=== PATIENT | female | born 1985 | race Caucasian/White ===

== ENCOUNTER 2016-07-09 11:07 | Emergency (ER) | payer MEDICAID, OTHER ==
[~2016-07-09] VITALS: Ht 172.7 cm; Wt 77.1 kg
--- OUTSIDE RECORDS SUMMARY | 2016-07-09 11:15 | XMS REPORT ---
Author Fay Nava [facility] Address [address] [place], [place] [id number] Care Team Providers Care Correction Officer Head Name Role Phone Tom Kaiser PCP Unavailable Allergies and Adverse Reactions Name Reaction Notes No known drug allergy Plan of Treatment Planned Activity Comments Planned Date Planned Time Plan/Goal HIV-1ANTIBODY 07/23/2015 12:00 AM URINALYSIS AUTO W/SCOPE 07/23/2015 12:00 AM OBSTETRIC PANEL 07/23/2015 12:00 AM URINE TEST 07/22/2015 12:00 AM CHORIONIC GONADOTROPIN TEST 07/28/2015 12:00 AM vaginal spotting Medications Not available. Problem List Not available. Vital Signs Date Time BP-Sys(mm[Hg] BP-Aruna(mm[Hg]) HR(bpm) RR(rpm) Temp WT HT HC BMI BSA BMI Percentile O2 Sat(%) 07/23/2015 8:51:00 AM 123 mmHg 66 mmHg 85 bpm 98.8 F 177 lbs 68 in 26.91 kg/m2 1.96 m2 07/22/2015 4:01:00 PM 122 mmHg 68 mmHg 81 bpm 20 rpm 98.8 F 176 lbs 99 % Social History Name Description Comments Single bachelors degree Caffeine Light Alcohol Never Tobacco Current every day smoker History of Procedures Date Ordered Description Order Status 07/23/2015 9:00 AM URINE TEST Reviewed 07/23/2015 12:00 AM CYTOPATH C/V THIN LAYER Returned 07/23/2015 12:00 AM N.GONORRHOEAE DNA AMP PROB Returned 07/23/2015 12:00 AM CHLAMYDIA CULTURE Returned 07/25/2015 12:00 AM CHORIONIC GONADOTROPIN TEST Returned 07/23/2015 12:00 AM Type and screen Returned Results Summary Data and Description Results 07/23/2015 9:00 AM Test, Urine positive 07/23/2015 10:05 AM BETA HCG QUANT 15248.0 mIU/mL 07/25/2015 6:00 PM BETA HCG QUANT >57706 mIU/mLBETA HCG QUANT 22560.0 mIU/ mLBETA HCG QUANT 03245.0 mIU/mL History Of Immunizations Not available. History of Past Illness Name Date of Onset Comments No significant medical history Vaginal spotting Jul 22 2015 4:06PM test confirmed positive Jul 23 2015 9:00AM , Threatened Jul 23 2015 9:00AM , Threatened Jul 28 2015 9:13AM Payers Not available. History of Encounters Visit Date Visit Type Provider 07/23/2015 Office visit Fay Kaiser APRN 07/22/2015 Office visit Trudy Cunningham BENZENE STILL UTILITY OPERATOR
[2016-07-09] MEDS ORDERED: NS IV 1000 ML 1,000 ML IV SCH (11:45)
[2016-07-09 11:59] LABS: BASOPHILS % (AUTO) 1 % (0-10); EOSINOPHILS # (AUTO) 0.1 10^3/uL (0.0-0.3); EOSINOPHILS % (AUTO) 2 % (0-10); LYMPHOCYTES # (AUTO) 1.2 X 10^3 (1.0-4.0); LYMPHOCYTES % (AUTO) 21 % (12-44); MEAN CORPUSCULAR HEMOGLOBIN 30 PG (25-34); MEAN CORPUSCULAR HGB CONC 34 G/DL (32-36); MEAN CORPUSCULAR VOLUME 88 FL (80-99); MONOCYTES # (AUTO) 0.5 X 10^3 (0.0-1.0); MONOCYTES % (AUTO) 9 % (0-12); NEUTROPHILS % (AUTO) 68 % (42-75); PLATELET COUNT 245 10^3/uL (130-400); RED BLOOD COUNT 4.39 10^6/uL (4.35-5.85); WHITE BLOOD COUNT 5.8 10^3/uL (4.3-11.0)
[2016-07-09] MEDS ORDERED: KETOROLAC 30 MG/ML VIAL IVP ONE (12:15)
--- NOTE | 2016-07-09 12:15 | ED Cough/URI ---
General Chief Complaint: Cough/Cold/Flu Symptoms Stated Complaint: FEVER/LETHARGIC/DUNN Nursing Triage Note: Pt presents to ED with c/o fever, productive cough, body aches, nausea, and lethargy x 4 days, no f/u with PCP. Afebrile in triage. Last dose of Motrin at 0930. Source: patient Exam Limitations: no limitations History of Present Illness Time seen by provider: 12:13 Initial Comments To ER with general malaise, frontal headache, productive cough, body aches fever and lethargy. This is been going on for 4 days. Several family members with influenza recently. Timing/Duration: just prior to arrival Severity/Quality: moderate Associated Symptoms: cough Allergies and Home Medications Allergies Coded Allergies: No Known Drug Allergies (Unverified , 07/09/16) Constitutional: see HPI malaise weakness EENTM: see HPI Respiratory: see HPI cough Cardiovascular: no symptoms reported Genitourinary: no symptoms reported Musculoskeletal: no symptoms reported Skin: no symptoms reported Psychiatric/Neurological: No Symptoms Reported Hematologic/Lymphatic: No Symptoms Reported Immunological/Allergic: no symptoms reported Past Hgsicgs-Xxrxzl-Gkhnou Hx Patient Social History Alcohol Use: Denies Use Recreational Drug Use: No Smoking Status: Current Everyday Smoker Type Used: Cigarettes Recent Foreign Travel: No Contact w/Someone Who Travel: No Recent Infectious Disease Expo: No Recent Hopitalizations: No Physical Abuse Screen: No Sexual Abuse: No Seasonal Allergies Seasonal Allergies: No Surgeries HX Surgeries: Yes (C/S x 4.) Surgeries: Section, Tonsillectomy Respiratory Hx Respiratory Disorders: No Cardiovascular Hx Cardiac Disorders: No Neurological Hx Neurological Disorders: No Reproductive System Hx Reproductive Disorders: No Sexually Transmitted Disease: No HIV/AIDS: No Genitourinary Hx Genitourinary Disorders: No Gastrointestinal Hx Gastrointestinal Disorders: No Musculoskeletal Hx Musculoskeletal Disorders: No Endocrine Hx Endocrine Disorders: No HEENT HX ENT Disorders: No Cancer Hx Cancer: No Psychosocial Hx Psychiatric Problems: No Integumentary HX Skin/Integumentary Disorder: No Blood Transfusions Hx Blood Disorders: No Adverse Reaction to a Blood Tr: No Physical Exam Vital Signs Vital Sign - Last 12Hours 07/09/16 11:17 Temp 98.7 Pulse 102 Resp 20 B/P 94/57 Pulse Ox 96 O2 Delivery Room Air Capillary Refill : Less Than 3 Seconds General Appearance: WD/WN no apparent distress Eyes: Bilateral Eye EOMI, Bilateral Eye Normal Inspection, Bilateral Eye PERRL HEENT: PERRL/EOMI normal ENT inspection Neck: non-tender full range of motion Respiratory: normal breath sounds no respiratory distress no accessory muscle use Cardiovascular: regular rate, rhythm no murmur Gastrointestinal: non tender soft Extremities: normal range of motion non-tender Neurologic/Psychiatric: alert normal mood/affect oriented x 3 Skin: normal color warm/dry Progress/Results/Core Measures Results/Orders Lab Results Laboratory Tests Test 07/09/16 11:50 Range/Units Basophils # (Auto) 0.0 0.0-0.1 10^3/uL Basophils (%) (Auto) 1 0-10 % Eosinophils # (Auto) 0.1 0.0-0.3 10^3/uL Eosinophils (%) (Auto) 2 0-10 % Hematocrit 39 35-52 % Hemoglobin 13.0 11.5-16.0 G/DL Lymphocytes # (Auto) 1.2 1.0-4.0 X 10^3 Lymphocytes (%) (Auto) 21 12-44 % Mean Corpuscular Hemoglobin 30 25-34 PG Mean Corpuscular Hemoglobin Concent 34 32-36 G/DL Mean Corpuscular Volume 88 80-99 FL Mean Platelet Volume 11.0 H 7.4-10.4 FL Monocytes # (Auto) 0.5 0.0-1.0 X 10^3 Monocytes (%) (Auto) 9 0-12 % Neutrophils # (Auto) 4.0 1.8-7.8 X 10^3 Neutrophils (%) (Auto) 68 42-75 % Platelet Count 245 130-400 10^3/uL Red Blood Count 4.39 4.35-5.85 10^6/uL Red Cell Distribution Width 13.0 10.0-14.5 % White Blood Count 5.8 4.3-11.0 10^3/uL Micro Results Microbiology 07/09/16 Influenza Types A,B Antigen (ROSARIO) - Final, Complete My Orders Orders-JAHAIRA LLOYD APRN Influenza A And B Antigens (07/09/16 11:29) Saline Lock/Iv-Start (07/09/16 11:36) Cbc With Automated Diff (07/09/16 11:36) Ns Iv 1000 Ml (Sodium Chloride 0.9%) (07/09/16 11:45) Ketorolac Injection (Toradol Injection) (07/09/16 12:15) Acetaminophen Tablet (Tylenol Tablet) (07/09/16 13:15) Medications Given in ED Current Medications Medications Dose Ordered Sig/[place] Route Start Time Stop Time Status Last Admin Dose Admin Ketorolac Tromethamine 30 mg ONCE ONCE IVP 07/09/16 12:15 07/09/16 12:16 DC 07/09/16 12:23 30 MG Vital Signs/I&O Vital Sign - Last 12Hours 07/09/16 11:17 Temp 98.7 Pulse 102 Resp 20 B/P 94/57 Pulse Ox 96 O2 Delivery Room Air Blood Pressure Mean: 69 Departure Communication Progress Notes Patient states that her symptoms may have been more recent in onset than 4 days. States that she's been so focused on her children that she is not focused on herself. She believes that she may be within the 48 hour window and would like to try Tamiflu. I have handwritten a prescription for this. Impression Impression: Primary Impression: Influenza Disposition: 01 HOME, SELF-CARE Condition: Stable Departure-Patient Inst. Decision time for Depature: 12:14 Referrals: NO,LOCAL PHYSICIAN (PCP) Primary Care Physician Patient Instructions: Flu, Adult (DC) Add. Discharge Instructions: 1. Tylenol and Motrin for headache 2. Return to ER for any concerns All discharge instructions reviewed with patient and/or family. Voiced understanding. JAHAIRA LLOYD APRN Jul 09, 2016 12:15
[2016-07-09 13:15] VITALS: BP 102/70
[2016-07-09] MEDS ORDERED: ACETAMINOPHEN 500 MG TAB (TYLENOL) PO ONE (13:15)
== END 2016-07-09 13:18 | disposition home or self-care (01) ==
LOC: ER 11:10
DX: J09.X2 Influenza due to identified novel influenza A virus with other respiratory manifestations (principal)
CPT/HCPCS: 36415; 85025; 87804; 96361; 96374; 99283

== ENCOUNTER → 2017-04-23 | Outpatient (CLI) | payer MEDICAID ==
--- NOTE | 2017-04-23 16:41 | Diagnostic Imaging Report ---
INDICATION: survey. TECHNIQUE: Multiple real-time grayscale images were obtained over the gravid uterus. COMPARISON: None FINDINGS: heart rate is 136 beats per minute. The placenta is anterior. No placenta previa. The cervix is 5.1 cm in length and appears closed. The spine, posterior fossa, the lateral ventricles, the stomach, the bladder, two umbilical arteries, and the kidneys appear unremarkable. The four-chamber view and cord insertion are not well seen due to position. Biometrical measurements are as follows: Biparietal 6.26 cm, age 25 weeks 3 days. Head circumference 23.16 cm, age 25 weeks 2 days. Abdominal circumference 21.52 cm, age 26 weeks 1 days. Femur length 4.63 cm, age 25 weeks 3 days. Sonographic estimate age: 25 weeks 4 days. Sonographic estimated date of delivery: 08/02/2017. Estimated Weight: 838 gm (+/- 122 gm). LMP percentile: 77%. heart rate: 136 beats per minute. number: 1 of 1. IMPRESSION: The cord insertion and four-chamber view are not seen due to position. Followup to reassess in two weeks is suggested. Dictated by: Dictated on workstation # [id number]
== END ==
LOC: RAD 13:05
PROVIDERS: ATTEND Obstetrics & Gynecology
DX: Z36.87 Encounter for antenatal screening for uncertain dates (principal); Z3A.25 25 weeks gestation of pregnancy
CPT/HCPCS: 76805

== ENCOUNTER → 2017-07-25 | Outpatient (CLI) | payer MEDICAID ==
--- NOTE | 2017-07-25 12:42 | Diagnostic Imaging Report ---
INDICATION: Evaluate growth, amniotic fluid volume and presentation. TECHNIQUE: Multiple real-time grayscale images were obtained over the gravid uterus. COMPARISON: 04/23/2017. FINDINGS: There is a single live fetus in a transverse presentation, head to the maternal right. The amniotic fluid index is 15.6 cm. The placenta is anterior. heart rate was recorded at 149 beats per minute. Biometry measurements are consistent with approximately 37-38 weeks gestational age, demonstrating normal interval growth. Biometrical measurements are as follows: Biparietal 9.0 cm, age 36 weeks 5 days. Head circumference 32.6 cm, age 37 weeks 1 days. Abdominal circumference 34.0 cm, age 38 weeks 0 days. Femur length 7.6 cm, age 38 weeks 5 days. Sonographic estimate age: 37 weeks 5 days. Sonographic estimated date of delivery: 08/10/17. Estimated Weight: 3317 gm (+/- 484 gm). LMP percentile: 55%. heart rate: 149 beats per minute. number: 1 of 1. IMPRESSION: Single live IUP approximately 37-38 weeks gestational age showing normal interval growth when compared with prior ultrasound from April 2017. The fetus is transverse, head to maternal right. Dictated by: Dictated on workstation # [id number]
== END ==
LOC: RAD 12:09
PROVIDERS: ATTEND Obstetrics & Gynecology
DX: O32.2XX0 Maternal care for transverse and oblique lie, not applicable or unspecified (principal); Z3A.37 37 weeks gestation of pregnancy
CPT/HCPCS: 76816

== ENCOUNTER 2017-07-30 06:05 | Outpatient (CLI) | payer MEDICAID ==
[~2017-07-30] VITALS: Ht 172.7 cm; Wt 98.4 kg
== END 2017-07-30 14:59 ==
LOC: PREOP 06:05
PROVIDERS: ATTEND Obstetrics & Gynecology
DX: Z01.818 Encounter for other preprocedural examination (principal); O34.219 Maternal care for unspecified type scar from previous cesarean delivery; Z40.03 Encounter for prophylactic removal of fallopian tube(s)

== ENCOUNTER 2017-07-31 03:45 | Inpatient (IN) | payer MEDICAID ==
[~2017-07-31] VITALS: Ht 172.7 cm; Wt 96.2 kg
[2017-07-31] MEDS ORDERED: LACTATED RINGERS 1,000 ML IV ONE (05:39)
[2017-07-31] MEDS ORDERED: LACTATED RINGERS 1,000 ML IV PRN ×2 (07:41)
[2017-07-31] MEDS ORDERED: METOCLOPRAMIDE INJ 10 MG/2 ML (REGLAN) IV ONE (07:45)
[2017-07-31] MEDS ORDERED: ceFAZolin INJECTION 1,000 MG in NS (IVPB) 50 ML IV ONE (07:45)
[2017-07-31] MEDS ORDERED: FAMOTIDINE 20MG/2ML IV (PEPCID) IV ONE (07:45)
[2017-07-31] MEDS ORDERED: metroNIDAZOLE 500MG/100ML IVPB 100 ML IV ONE ×2 (07:45→10:30)
[2017-07-31] MEDS ORDERED: CITRIC ACID/SOB CIT (BICITRA) 30 ML UDC PO ONE (07:45)
[2017-07-31 07:48] LABS: BASOPHILS % (AUTO) 0 % (0-10); EOSINOPHILS # (AUTO) 0.1 10^3/uL (0.0-0.3); EOSINOPHILS % (AUTO) 1 % (0-10); HEMATOCRIT 31 % (35-52); HEMOGLOBIN 10.4 G/DL (11.5-16.0); LYMPHOCYTES # (AUTO) 2.1 X 10^3 (1.0-4.0); LYMPHOCYTES % (AUTO) 26 % (12-44); MEAN CORPUSCULAR HEMOGLOBIN 29 PG (25-34); MEAN CORPUSCULAR HGB CONC 33 G/DL (32-36); MEAN CORPUSCULAR VOLUME 87 FL (80-99); MEAN PLATELET VOLUME 11.5 FL (7.4-10.4); MONOCYTES # (AUTO) 0.5 X 10^3 (0.0-1.0); MONOCYTES % (AUTO) 6 % (0-12); NEUTROPHILS # (AUTO) 5.5 X 10^3 (1.8-7.8); NEUTROPHILS % (AUTO) 67 % (42-75); PLATELET COUNT 254 10^3/uL (130-400); RED BLOOD COUNT 3.57 10^6/uL (4.35-5.85); RED CELL DISTRIBUTION WIDTH 13.5 % (10.0-14.5); WHITE BLOOD COUNT 8.2 10^3/uL (4.3-11.0)
[2017-07-31 08:43] LABS: BILIRUBIN,URINE NEGATIVE (NEGATIVE); CLARITY,URINE CLEAR; COLOR,URINE YELLOW; GLUCOSE, URINE (UA) NEGATIVE (NEGATIVE); KETONES,URINE NEGATIVE (NEGATIVE); LEUKOCYTE ESTERASE ,URINE 1+ (NEGATIVE); NITRITE,URINE NEGATIVE (NEGATIVE); PH,URINE 7 (5-9); PROTEIN,URINE NEGATIVE (NEGATIVE); UROBILINOGEN,URINE NORMAL (NORMAL)
[2017-07-31 08:52] LABS: AMORPHOUS SEDIMENT,UR FEW AMOR URATES /LPF; BACTERIA,URINE FEW /HPF
[2017-07-31] MEDS ORDERED: metroNIDAZOLE 500MG/100ML IVPB 100 ML ONE (09:15)
[2017-07-31] MEDS ORDERED: ceFAZolin 2 GM IV Premixed 50 ML ONE (09:20)
[2017-07-31] MEDS ORDERED: AMPICILLIN 2000 MG INJECTION (IM/IV) ONE (09:20)
[2017-07-31] MEDS ORDERED: fentaNYL INJECTION 100 MCG/2 ML AMP ONE (09:20)
[2017-07-31] MEDS ORDERED: ONDANSETRON 4 MG/2 ML (SDV) Z0FRAN ONE ×2 (09:21→09:50)
[2017-07-31] MEDS ORDERED: INFLUENZA TRIvalent 2017-2018 0.5 ML/45 MCG SYR IM ONE (09:30)
--- NOTE | 2017-07-31 09:46 | Progress Note-Pre Operative ---
Pre-Operative Progress Note H&P Reviewed The H&P was reviewed, patient examined and no changes noted. Date Seen by Provider: Jul 31, 2017 Time Seen by Provider: 08:55 Date H&P Reviewed: Jul 31, 2017 Time H&P Reviewed: 07:00 Pre-Operative Diagnosis: Previous x 4, desire to reduce risk of ovarian cancer OSMIN MANN DO Jul 31, 2017 09:46
[2017-07-31] MEDS ORDERED: ONDANSETRON 4 MG/2 ML (SDV) Z0FRAN IV PRN (10:30)
[2017-07-31] MEDS ORDERED: ceFAZolin 2 GM IV Premixed 50 ML IV ONE (10:30)
[2017-07-31] MEDS ORDERED: diphenhydrAMINE 50 MG/ML INJ (BENADRYL) IV PRN (10:30)
[2017-07-31] MEDS ORDERED: NALOXONE 0.4 MG/ML 1 ML (NARCAN) VIAL IV PRN (10:30)
[2017-07-31] MEDS ORDERED: D5 LR IV SOLUTION 1,000 ML IV SCH (10:33)
[2017-07-31] MEDS ORDERED: OXYTOCIN/NORMAL SALINE 500 ML IV SCH (10:33)
--- NOTE | 2017-07-31 10:41 | Cesarean Section Operative ---
Procedure Procedure Note Pre-operative Diagnosis: [address] is a 34 /Para 10/3013 , Gestational Age 39 2/7 weeks with history of previous section, malpresentation, possible labor, desires reduction in risk of ovarian cancer Post-operative Diagnosis: same, omental adhesions Procedure: Repeat low transverse section, risk reduction salpingectomy , lysis of omental adhesions Physician: OSMIN MANN Mill Tender Washing: Phyllis Han APRN, material assistant necessary for retraction of important structures Estimated blood loss: 700 mL Disposition: stable Findings: Viable female , Apgars 8/9, weight 7#13oz, intact placenta, 3vc, normal appearing uterus, tubes, and ovaries. Indications:[address] is a 34 /Para 10/3013 ,Gestational Age 39 2/7 weeks with history of previous section, malpresentation, possible labor , desires reduction in risk of ovarian cancer Procedure Details: The patient was seen in pre-op and the procedure was discussed with the patient in full, including the risks, benefits, and alternatives. All questions were answered. The patient was taken to the operating room and a time out was performed, verifying patient and procedure. After spinal anesthesia was placed by our anesthesia colleagues, the patient was placed in the dorsal supine with leftward tilt for uterine displacement.~ Her abdomen was then prepped and draped in the typical sterile fashion. A Pfannenstiel skin incision was made using a scalpel and carried down through the underlying fascia. The fascia was incised in the midline and tented up using Opal clamps. On both the inferior and superior fascia side the rectus muscle was dissected off bluntly and sharply using Moss scissors. The peritoneum was identified and entered bluntly in the midline. This was then stretched laterally using manual strength. After entering the abdominal cavity it was determined that there were extensive omental adhesions to the anterior abdominal wall, through the peritoneum to the anterior fascia. These had to be taken down with cautery prior to the section. This took an additional 7 minutes. Then once I confirmed additional intraperitoneal adhesions, an extra -large Marco A retractor was placed and the lower uterine segment was visualized. A bladder flap was created with the use of Metzenbaum scissors. The bladder flap was advanced over the lower uterine segment A scalpel was utilized to make a low transverse uterine incision. Amniotomy was performed with an Allis clamp with return of clear fluid. The 's head was grasped and brought to the level of the incision. Infant was immediately crying and vigorous. Fundal pressure was applied and infant was delivered without difficulty. Mouth and nares were suctioned with bulb suction. After the umbilical cord was clamped and cut, the infant was handed off to the pediatric staff. A sample of cord blood was then obtained. The placenta was delivered intact via uterine massage. The uterus was cleared of all clots and debris. The uterine incision was closed using 0 Vicryl in a running locked fashion. A second imbricated layer was placed using 0 Vicryl in a running fashion as well. The uterus was flexed forward and the posterior rectouterine space was inspected and cleared of all clots and debris. Again the hysterotomy site was examined and hemostasis was observed. The bilateral tubes and ovaries appeared normal. At this time a bilateral salpingectomy for risk reduction of ovarian cancer was completed. I elevated each tube with the Keavy clamps and then transected across the mesosalpinx with the LigaSure. I then clamped at the cornual attachment of the uterus and the tubes bilaterally from the uterus with the LigaSure. I then insured no active bleeding and sent the tubes for pathology. The abdominal gutters were cleared of all clots and debris. A final check of the uterine incision showed it to be hemostatic. The peritoneum was closed using 3-0 Vicryl in a running fashion. The fascia was closed with 0 Vicryl in a running fashion. The subcutaneous space was hemostatic, and irrigated. The subcutaneous space was closed with 3-0 Vicryl in several single interrupted stitches. The skin was then closed using 4-0 Monocryl in a running subcuticular fashion. The skin edges were reapproximated together and were hemostatic. A pressure dressing was applied. All sponge, lap and needle counts were correct at the end of the procedure per nursing. Vitals - Labs Labs Laboratory Tests 07/31/17 06:30: Urine Color YELLOW, Urine Clarity CLEAR, Urine pH 7, Urine Specific [place] 1.015L, Urine Protein NEGATIVE, Urine Glucose (UA) NEGATIVE, Urine Ketones NEGATIVE, Urine Nitrite NEGATIVE, Urine Bilirubin NEGATIVE, Urine Urobilinogen NORMAL, Urine Leukocyte Esterase 1+H, Urine RBC (Auto) NEGATIVE, Urine RBC NONE , Urine WBC 5-10H, Urine Squamous Epithelial Cells 10-25H, Urine Crystals PRESENTH, Urine Amorphous Sediment FEW OVIDIO URATESH, Urine Bacteria FEWH, Urine Casts NONE, Urine Mucus NEGATIVE, Urine Culture Indicated YES 07/31/17 07:20: White Blood Count 8.2, Red Blood Count 3.57L, Hemoglobin 10.4L, Hematocrit 31L, Mean Corpuscular Volume 87, Mean Corpuscular Hemoglobin 29, Mean Corpuscular Hemoglobin Concent 33, Red Cell Distribution Width 13.5, Platelet Count 254, Mean Platelet Volume 11.5H, Neutrophils (%) (Auto) 67, Lymphocytes (%) (Auto) 26 , Monocytes (%) (Auto) 6, Eosinophils (%) (Auto) 1, Basophils (%) (Auto) 0, Neutrophils # (Auto) 5.5, Lymphocytes # (Auto) 2.1, Monocytes # (Auto) 0.5, Eosinophils # (Auto) 0.1, Basophils # (Auto) 0.0 OSMIN MANN DO Jul 31, 2017 10:41
[2017-07-31] MEDS ORDERED: MEASLES,MUMPS,RUBELLA 1 EA INJ SC SCH (10:45)
[2017-07-31] MEDS ORDERED: ONDANSETRON 4 MG/2 ML (SDV) Z0FRAN IVP PRN (10:45)
[2017-07-31] MEDS ORDERED: HYDROcodone/APAP 5 MG/325 MG (LORTAB) TAB PO PRN (10:45)
[2017-07-31] MEDS ORDERED: TETANUS,DIPTH,PERTUSS P/F (BOOSTRIX) 0.5 ML VIAL IM SCH (10:45)
[2017-07-31] MEDS: KETOROLAC 30 MG/ML VIAL IVP SCH ×2 (11:45→18:49)
[2017-07-31 12:27] VITALS: BP 109/70
[2017-07-31] MEDS ORDERED: OXYTOCIN/NORMAL SALINE 1,000 ML IV ONE (13:23)
[2017-07-31] MEDS: HYDROmorphone (DILAUDID) 2 MG/ML VIAL IVP PRN ×2 (13:44→20:33)
[2017-07-31] MEDS ORDERED: CATHETER FLUSH 10 ML SYR IV SCH (14:00)
[2017-07-31] MEDS: CATHETER FLUSH 10 ML SYR IV PRN (15:29)
[2017-07-31] MEDS ORDERED: HYDROmorphone (DILAUDID) 2 MG/ML VIAL IVP ONE (15:30)
[2017-07-31 16:01] VITALS: BP 109/63
[2017-07-31] MEDS: oxyCODONE/APAP 5/325MG (PERCOCET 5) TABLET PO PRN ×2 (16:45→22:41)
[2017-07-31 20:29] VITALS: BP 118/71
[2017-07-31] MEDS: DOCUSATE SODIUM 100 MG (COLACE) CAP PO SCH (20:29)
[2017-07-31] MEDS: FERROUS SULF 325 MG (IRON) TAB PO SCH (20:29)
[2017-08-01 00:59] VITALS: BP 125/79
[2017-08-01] MEDS: CATHETER FLUSH 10 ML SYR IV PRN (00:59)
[2017-08-01] MEDS: KETOROLAC 30 MG/ML VIAL IVP SCH ×2 (00:59→02:03)
[2017-08-01] MEDS ORDERED: IBUPROFEN 600 MG (MOTRIN) TAB PO ONE ×2 (01:09→06:27)
[2017-08-01] MEDS: IBUPROFEN 600 MG (MOTRIN) TAB PO SCH ×5 (01:12→23:30)
[2017-08-01] MEDS: oxyCODONE/APAP 5/325MG (PERCOCET 5) TABLET PO PRN ×4 (02:10→20:21)
[2017-08-01 04:22] VITALS: BP 104/64
[2017-08-01 06:19] LABS: BASOPHILS % (AUTO) 0 % (0-10); EOSINOPHILS # (AUTO) 0.1 10^3/uL (0.0-0.3); EOSINOPHILS % (AUTO) 1 % (0-10); HEMATOCRIT 28 % (35-52); HEMOGLOBIN 9.5 G/DL (11.5-16.0); LYMPHOCYTES # (AUTO) 1.9 X 10^3 (1.0-4.0); LYMPHOCYTES % (AUTO) 16 % (12-44); MEAN CORPUSCULAR HEMOGLOBIN 30 PG (25-34); MEAN CORPUSCULAR HGB CONC 34 G/DL (32-36); MEAN CORPUSCULAR VOLUME 89 FL (80-99); MEAN PLATELET VOLUME 11.3 FL (7.4-10.4); MONOCYTES # (AUTO) 0.6 X 10^3 (0.0-1.0); MONOCYTES % (AUTO) 5 % (0-12); NEUTROPHILS # (AUTO) 9.3 X 10^3 (1.8-7.8); NEUTROPHILS % (AUTO) 78 % (42-75); PLATELET COUNT 196 10^3/uL (130-400); RED BLOOD COUNT 3.19 10^6/uL (4.35-5.85); RED CELL DISTRIBUTION WIDTH 13.9 % (10.0-14.5); WHITE BLOOD COUNT 11.9 10^3/uL (4.3-11.0)
[2017-08-01] MEDS: DOCUSATE SODIUM 100 MG (COLACE) CAP PO SCH ×2 (08:24→20:20)
[2017-08-01] MEDS: FERROUS SULF 325 MG (IRON) TAB PO SCH ×2 (08:24→16:59)
[2017-08-01 08:25] VITALS: BP 117/70
[2017-08-01 11:19] VITALS: BP 118/68
--- NOTE | 2017-08-01 13:20 | Anesthesia-Regional Post-Op ---
Regional Patient Condition Mental Status: Alert, Oriented x3 Circulation: Same as Pre-Op Headache: Absent Sensation: Full Recovery Motor Block: Absent Post Op Complications Complications None Follow Up Care/Instructions Patient Instructions None needed. Anesthesia/Patient Condition Patient is doing well, no complaints, stable vital signs, no apparent adverse anesthesia problems. CALIN BUSTILLO DO Aug 01, 2017 13:20
[2017-08-01 16:00] VITALS: BP 120/70
--- NOTE | 2017-08-01 20:56 | Postpartum Progress Note ---
Post Op LAte entry. Seen at 0900]Post-operative Day #1 s/p RLTCS RR salpingectomy Subjective: Patient is without complaints. Ambulating, voiding after veras removed. Tolerating a regular diet without nausea or vomiting. Normal lochia. Pain is well controlled with oral pain medications. Passing flatus. Objective: Laboratory Tests Test 08/01/17 05:46 Range/Units White Blood Count 11.9 H 4.3-11.0 10^3/uL Red Blood Count 3.19 L 4.35-5.85 10^6/uL Hemoglobin 9.5 L 11.5-16.0 G/DL Hematocrit 28 L 35-52 % Mean Corpuscular Volume 89 80-99 FL Mean Corpuscular Hemoglobin 30 25-34 PG Mean Corpuscular Hemoglobin Concent 34 32-36 G/DL Red Cell Distribution Width 13.9 10.0-14.5 % Platelet Count 196 130-400 10^3/uL Mean Platelet Volume 11.3 H 7.4-10.4 FL Neutrophils (%) (Auto) 78 H 42-75 % Lymphocytes (%) (Auto) 16 12-44 % Monocytes (%) (Auto) 5 0-12 % Eosinophils (%) (Auto) 1 0-10 % Basophils (%) (Auto) 0 0-10 % Neutrophils # (Auto) 9.3 H 1.8-7.8 X 10^3 Lymphocytes # (Auto) 1.9 1.0-4.0 X 10^3 Monocytes # (Auto) 0.6 0.0-1.0 X 10^3 Eosinophils # (Auto) 0.1 0.0-0.3 10^3/uL Basophils # (Auto) 0.0 0.0-0.1 10^3/uL Vital Sign - Last 12Hours 08/01/17 08/01/17 11:19 16:00 Temp 97.3 97.3 Pulse 89 84 Resp 20 16 B/P (MAP) 118/68 (85) 120/70 (87) Pulse Ox 99 98 O2 Delivery Room Air Room Air Intake and Output 08/01/17 00:00 Intake Total 2747 ml Output Total 1075 ml Balance 1672 ml Physical Exam: General - Alert and oriented, no apparent distress Abdomen - Soft, appropriately tender to palpation, non-distended, fundus firm at umbilicus Incision - clean, dry and intact; no erythema or induration, no drainage Extremities - no edema, negative Shawnee's bilaterally Assessment: 1. post-operative day # 1, status post RLTCS, RRS. Recovering well, hemodynamically stable 2. Acute blood loss anemia Plan: Routine post-operative care. Encourage breast feeding. Encourage ambulation. VTE prophylaxis: SCDs. Ferrous sulfate supplementation. Plan for discharge tomorrow Vitals - Labs Vital Signs - I&O Vital Signs Date Time Temp Pulse Resp B/P (MAP) Pulse Ox O2 Delivery O2 Flow Rate FiO2 08/01/17 16:00 97.3 84 16 120/70 (87) 98 Room Air 08/01/17 11:19 97.3 89 20 118/68 (85) 99 Room Air 08/01/17 08:25 97.0 83 20 117/70 (86) 98 Room Air 08/01/17 08:24 Room Air 08/01/17 04:22 96.8 79 16 104/64 (77) 96 Room Air 08/01/17 00:59 99.2 94 18 125/79 (94) 98 Room Air I & O 08/01/17 07:00 Intake Total 6297 ml Output Total 3375 ml Balance 2922 ml Labs Laboratory Tests 08/01/17 05:46: White Blood Count 11.9H, Red Blood Count 3.19L, Hemoglobin 9.5L, Hematocrit 28L , Mean Corpuscular Volume 89, Mean Corpuscular Hemoglobin 30, Mean Corpuscular Hemoglobin Concent 34, Red Cell Distribution Width 13.9, Platelet Count 196, Mean Platelet Volume 11.3H, Neutrophils (%) (Auto) 78H, Lymphocytes (%) (Auto) 16, Monocytes (%) (Auto) 5, Eosinophils (%) (Auto) 1, Basophils (%) (Auto) 0, Neutrophils # (Auto) 9.3H, Lymphocytes # (Auto) 1.9, Monocytes # (Auto) 0.6, Eosinophils # (Auto) 0.1, Basophils # (Auto) 0.0 Microbiology 07/31/17 Urine Culture - Preliminary, Resulted OSMIN MANN DO Aug 01, 2017 20:56
[2017-08-01 23:00] VITALS: BP 124/73
[2017-08-02] MEDS: oxyCODONE/APAP 5/325MG (PERCOCET 5) TABLET PO PRN ×3 (02:18→12:36)
[2017-08-02] MEDS: SIMETHICONE 80 MG (MYLICON) CHEW PO PRN ×2 (02:20→11:17)
[2017-08-02 06:54] VITALS: BP 120/77
[2017-08-02] MEDS: IBUPROFEN 600 MG (MOTRIN) TAB PO SCH ×2 (06:54→12:37)
--- NOTE | 2017-08-02 09:46 | Postpartum Progress Note ---
Post Op Post-operative Day #2 s/p RLTCS Subjective: Patient is without complaints. Ambulating, voiding after veras removed. Tolerating a regular diet without nausea or vomiting. Normal lochia. Pain is well controlled with oral pain medications. Passing flatus. Objective: Vital Sign - Last 12Hours 08/01/17 08/02/17 23:00 06:54 Temp 97.2 98.2 Pulse 88 88 Resp 16 16 B/P (MAP) 124/73 (90) 120/77 (91) Pulse Ox 97 98 O2 Delivery Room Air Room Air Intake and Output 08/02/17 00:00 Intake Total 1600 ml Balance 1600 ml Physical Exam: General - Alert and oriented, no apparent distress Abdomen - Soft, appropriately tender to palpation, non-distended, fundus firm at umbilicus Incision - clean, dry and intact; no erythema or induration, no drainage Extremities - no edema, negative Shawnee's bilaterally Assessment: 1. post-operative day # 2, status post RLTCS, RR salpingectomy. Recovering well, hemodynamically stable 2. Acute blood loss anemia - receiving iron Plan: Routine post-operative care. Encourage breast feeding. Encourage ambulation. VTE prophylaxis: SCDs. Ferrous sulfate supplementation. Plan for discharge today or tomorrow Vitals - Labs Vital Signs - I&O Vital Signs Date Time Temp Pulse Resp B/P (MAP) Pulse Ox O2 Delivery O2 Flow Rate FiO2 08/02/17 06:54 98.2 88 16 120/77 (91) 98 Room Air 08/01/17 23:00 97.2 88 16 124/73 (90) 97 Room Air 08/01/17 16:00 97.3 84 16 120/70 (87) 98 Room Air 08/01/17 11:19 97.3 89 20 118/68 (85) 99 Room Air I & O 08/02/17 07:00 Intake Total 2700 ml Balance 2700 ml Labs Microbiology 07/31/17 Urine Culture - Preliminary, Resulted OSMIN MANN DO Aug 02, 2017 09:46
[2017-08-02] MEDS ORDERED: OXYC-471 PO (09:48)
[2017-08-02] MEDS ORDERED: IBUP-1773 PO (09:48)
[2017-08-02] MEDS ORDERED: FERR325T18 PO (09:48)
[2017-08-02] MEDS ORDERED: SIME80TA16 PO (09:48)
[2017-08-02] MEDS ORDERED: DOCU100C37 PO (09:48)
--- NOTE | 2017-08-02 09:52 | Discharge Inst-Women's Service ---
Discharge Inst-Women's Serv Depart Medication/Instructions New, Converted or Re-Newed RX: RX on Chart Final Diagnosis repeat section risk reduction of ovarian cancer acute blood loss anemia Consults/Follow Up Additional Follow Up: Yes (1 week for incision check jose Ferguson/lee ann, 6 weeks for pp exam) Activity Activity: Activity as Tolerated Driving Instructions: No Driving for 1 Week NO SMOKING: NO SMOKING Nothing Inside Vagina: No Douching, No [place], No Tampons Diet Discharge Diet: No Restrictions Symptoms to Report to : Swelling Increased, Eyesight Changes, Fever Over 101 Degrees F, Vaginal Bleeding Increase, Cramps in Feet or Legs, Vaginal Discharge Foul For Any Problems or Questions: Contact Your Physician Skin/Wound Care Infection Signs and Symptoms: Increased Redness, Foul Odor of Wound, Increased Drainage, Skin Itchy or Has a Rash, Increased Swelling, Temperature Above 101 F Operative Area Clean and Dry: Keep Incision Clean/Dry Stitches/[place]/Dermabond: Dermabond Bathing Instructions: OSMIN Tobar DO Aug 02, 2017 09:52
[2017-08-02] MEDS: FERROUS SULF 325 MG (IRON) TAB PO SCH (11:17)
[2017-08-02] MEDS: DOCUSATE SODIUM 100 MG (COLACE) CAP PO SCH (11:17)
[2017-08-02 11:20] VITALS: BP 116/67
[2017-08-02 14:15] VITALS: BP 116/67
== END 2017-08-02 14:15 | disposition home or self-care (01) | DRG 765 ==
LOC: LDRP 06:36 → WS 12:00
PROVIDERS: ADMIT Obstetrics & Gynecology; ATTEND Obstetrics & Gynecology
PROC: 0UT70ZZ Resection of Bilateral Fallopian Tubes, Open Approach (ICD-10-PCS; 2017-07-31)
PROC: 10D00Z1 Extraction of Products of Conception, Low, Open Approach (ICD-10-PCS; principal; 2017-07-31 09:29)
DX: O34.211 Maternal care for low transverse scar from previous cesarean delivery (principal); O65.5 Obstructed labor due to abnormality of maternal pelvic organs; O90.81 Anemia of the puerperium; D62 Acute posthemorrhagic anemia; Z3A.39 39 weeks gestation of pregnancy; Z37.0 Single live birth
CPT/HCPCS: 36415; 81000; 85025; 86850; 86900; 86901; 87088; 94664

== ENCOUNTER → 2018-05-29 | Outpatient (CLI) | payer MEDICAID ==
[~2018-05-29] MED LIST: DOCU100C37 PO; FERR325T18 PO; IBUP-1773 PO; OXYC-471 PO; SIME80TA16 PO
--- NOTE | 2018-05-29 17:08 | Diagnostic Imaging Report ---
PROCEDURE: MR imaging of the brain without contrast. TECHNIQUE: Multiplanar, multisequence MR imaging of the brain was performed without contrast. INDICATION: Facial and upper extremity paresthesia with lower extremity numbness. FINDINGS: Ventricles and sulci are within normal limits for size. Neves and white matter signal intensities are unremarkable. There is no restricted diffusion to indicate an infarct. There is no abnormal mass effect or shift of midline structures. Fluid is present within mastoid air cells, greater on the right. Visualized paranasal sinuses are clear. IMPRESSION: No acute intracranial abnormalities identified. Mastoid air cells fluid is present, greater on the right. Dictated by: Dictated on workstation # [id number]
== END ==
LOC: RAD 16:11
PROVIDERS: ATTEND Obstetrics & Gynecology
DX: N39.490 Overflow incontinence (principal); R51 Headache; R20.0 Anesthesia of skin; R20.2 Paresthesia of skin
CPT/HCPCS: 70551

== ENCOUNTER → 2018-05-31 | Outpatient (CLI) | payer MEDICAID ==
--- NOTE | 2018-05-31 10:21 | Diagnostic Imaging Report ---
PROCEDURE: MR imaging cervical spine without contrast. TECHNIQUE: Multiplanar, multisequence MR imaging of the cervical spine was performed without contrast. INDICATION: Bilateral arm and leg numbness as well as facial, neck and tongue numbness and headache. No prior studies are available for comparison. FINDINGS: There is some straightening of the normal cervical lordotic curvature. Vertebral body marrow signal is normal. No geographic marrow lesion is seen. There is fairly normal height and signal intensity to the cervical intervertebral discs. The cervical spinal cord demonstrates normal homogeneous signal intensity and normal morphology. Central canal and neural foramina are widely patent at all levels of the cervical spine. No focal disc protrusion is seen. The paraspinous tissues are unremarkable. IMPRESSION: Unremarkable MRI of the cervical spine. No central canal or neural foraminal stenosis is seen. No abnormal cord signal is detected. Dictated by: Dictated on workstation # [id number]
[2018-05-31] MEDS: GADOBUTROL 10 MMOL/10 ML (GADAVIST) VIAL IV ONE (10:36)
--- NOTE | 2018-05-31 11:18 | Diagnostic Imaging Report ---
INDICATION: Bilateral arm leg numbness, facial, neck and tongue numbness with head pain and loss of bladder control. FINDINGS: Thoracic spinal cord has a normal volume and normal morphology and normal signal intensity throughout. The spinal canal is widely patent at each vertebral body and disc space level with a good volume of CSF circumscribing the cord at all levels. Few scattered fat-containing benign hemangiolipomata noted. No suspicious marrow signal abnormality. The thoracic vertebral body heights are maintained and their alignment is anatomic. No paravertebral mass, hemorrhage or fluid collection and no foraminal obstruction. Intervertebral discs are well-hydrated and show no significant displacement. IMPRESSION: Unremarkable MRI thoracic spine showed no stenosis or cord pathology. Dictated by: Dictated on workstation # [id number]
== END ==
LOC: RAD 09:11
PROVIDERS: ATTEND Obstetrics & Gynecology
DX: R20.0 Anesthesia of skin (principal); R20.2 Paresthesia of skin; R51 Headache
CPT/HCPCS: 72141; 72157